=== PATIENT | female | born 2000 | race African-American/Black ===

== ENCOUNTER 2025-04-06 09:14 | Emergency (ER) | payer MEDICAID ==
[~2025-04-06] VITALS: Ht 160 cm; Wt 55.0 kg
[2025-04-06 09:47] VITALS: O2SAT 100
[2025-04-06 10:53] LABS: CLARITY URINE CLEAR (CLEAR); COLOR URINE YELLOW (YELLOW); GLUCOSE URINE NEGATIVE (NEGATIVE); KETONES URINE NEGATIVE (NEGATIVE); LEUKOCYTE ESTERASE URINE TRACE (NEGATIVE); NITRITE URINE NEGATIVE (NEGATIVE); OCCULT BLOOD URINE NEGATIVE (NEGATIVE); PH URINE 6.5 (4.5-8.0); PROTEIN URINE NEGATIVE (NEGATIVE); SPECIFIC GRAVITY URINE 1.025 (1.005-1.030); UROBILINOGEN URINE 1.0 E.U./dL (0.2-1.0)
[2025-04-06] MEDS ORDERED: METR-354 MT (11:15)
[2025-04-06 11:16] LABS: MUCUS URINE 3+ /lpf (< = 2+); SQUAMOUS EPITHELIAL CELL URINE 3+ /lpf (RARE/1+)
[2025-04-06] MEDS: CEFTRIAXONE SODIUM 500MG VIAL IM ONE (11:17)
[2025-04-06 11:18] LABS: BACTERIA URINE 2+; RBC URINE 0-2 /hpf (0-2)
[2025-04-06 11:32] LABS: HCG SCREEN NEGATIVE
[2025-04-06 11:34] VITALS: BP 111/66; PULSE 79; RESP 18; TEMP 36.9; O2SAT 99
== END 2025-04-06 11:35 | disposition home or self-care (01) ==
LOC: ER 09:14
DX: Z11.3 Encounter for screening for infections with a predominantly sexual mode of transmission (principal)
CPT/HCPCS: 99283; 86592; 81003; 81025; 84703; 96372; J0696